=== PATIENT | female | born 1970 ===

== ENCOUNTER 2023-01-23 03:49 | Emergency (ER) | payer SELFPAY ==
[~2023-01-23] VITALS: Ht 162 cm; Wt 77.0 kg
[2023-01-23] MEDS ORDERED: KETOROLAC 30 MG/ML VIAL IVP STA (04:08)
[2023-01-23] MEDS ORDERED: KETOROLAC 30 MG/ML VIAL ONE (04:11)
[2023-01-23] MEDS ORDERED: ASPIRIN 81 MG CHEW (CHILDREN'S ASA) ONE (04:11)
[2023-01-23] MEDS ORDERED: ASPIRIN 81 MG CHEW (CHILDREN'S ASA) PO ONE (04:15)
[2023-01-23 04:16] LABS: BASOPHILS % (AUTO) 0 % (0-10); EOSINOPHILS # (AUTO) 0.1 10^3/uL (0.0-0.3); EOSINOPHILS % (AUTO) 2 % (0-10); HEMATOCRIT 39 % (35-52); HEMOGLOBIN 12.9 g/dL (11.5-16.0); LYMPHOCYTES # (AUTO) 2.2 10^3/uL (1.0-4.0); LYMPHOCYTES % (AUTO) 30 % (12-44); MEAN CORPUSCULAR HEMOGLOBIN 27 pg (25-34); MEAN CORPUSCULAR HGB CONC 33 g/dL (32-36); MEAN CORPUSCULAR VOLUME 82 fL (80-99); MONOCYTES # (AUTO) 0.8 10^3/uL (0.0-1.0); MONOCYTES % (AUTO) 10 % (0-12); NEUTROPHILS # (AUTO) 4.2 10^3/uL (1.8-7.8); NEUTROPHILS % (AUTO) 57 % (42-75); PLATELET COUNT 237 10^3/uL (130-400); WHITE BLOOD COUNT 7.4 10^3/uL (4.3-11.0)
--- NOTE | 2023-01-23 04:16 | ED Chest Pain ---
General Chief Complaint: Chest Pain Stated Complaint: SNYDER,CP,LEFT SIDE & ARM PAIN Nursing Triage Note: C/O LEFT SIDED HEADACHE, LEFT CHEST/ARM PAIN X2 WEEKS WORSE TONIGHT. Source: patient, family Exam Limitations: language barrier History of Present Illness Date Seen by Provider: Jan 23, 2023 Time Seen by Provider: 03:58 Initial Comments Here with daughter and reports left-sided chest pain that started as left head pain that went to the neck and not to the chest. She reports this has been going on for 2 weeks. Denies nausea, vomiting, fever, upper respiratory sym ptoms or diarrhea. She is not vaccinated for COVID. She does have history of high blood pressure in the distant past but is not currently in treatment for that. This worsened tonight which caused the presentation to the ED. Daughter reports that she has been getting a little worse over the past couple of days and complaining of the head pressure and fullness and chest complaints. Patient reports that she is also having a little bit of stomach upset. She has not taken anything for the pain. Timing/Duration: getting worse, other (2-week) Severity/Quality: moderate Location: other (Left-sided) Radiation: neck, other (Left side of head) Activities at Onset: none Prior CP/Workup: no prior cardiac workup ASA po LAW ENFORCEMENT OFFICER: No NTG SL LAW ENFORCEMENT OFFICER: No Associated Symptoms: abdominal pain; No back pain, No edema, No fatigue, No fever/chills; headache; No shortness of breath, No weakness Allergies and Home Medications Allergies Coded Allergies: No Known Drug Allergies (Unverified , 01/23/23) Patient Home Medication List Home Medication List Reviewed: Yes Review of Systems Review of Systems Constitutional: see HPI EENTM: No Symptoms Reported Respiratory: Denies Cough, Denies SOA at Rest Cardiovascular: Chest Pain; Denies Edema; Lightheadedness Gastrointestinal: Denies Nausea, Denies Vomiting Genitourinary: No Symptoms Reported Musculoskeletal: No back pain; neck pain Skin: no symptoms reported Psychiatric/Neurological: Headache; Denies Numbness Past Lnqzqxv-Kmkcqj-Uudant Hx Patient Social History Tobacco Use?: No Substance use?: No Alcohol Use?: No Pt feels they are or have been: No Immunizations Up To Date First/Initial COVID19 Vaccinat: NA Past Medical History Surgery/Hospitalization HX: HTN, TUBAL Surgeries: Yes Tubal Ligation Respiratory: No Cardiac: Yes Hypertension Neurological: No Family Medical History Reviewed Nursing Family Hx No Pertinent Family Hx Physical Exam Vital Signs Vital Signs - First Documented 01/23/23 03:57 Temp 36.4 Pulse 67 Resp 18 B/P (MAP) 166/80 (108) Pulse Ox 100 O2 Delivery Room Air Capillary Refill : Less Than 3 Seconds Height, Weight, BMI Height: '" Weight: lbs. oz. kg; 29.00 BMI Method: General Appearance: No Apparent Distress, WD/WN HEENT: PERRL/EOMI, Pharynx Normal Neck: Non Tender, Supple Respiratory: Lungs Clear, Normal Breath Sounds Cardiovascular: Regular Rate, Rhythm, No Murmur Gastrointestinal: Non Tender, Soft Extremity: Normal Range of Motion, Non Tender, No Calf Tenderness, No Pedal Edema Neurologic/Psychiatric: Alert, Oriented x3 Skin: Normal Color, Warm/Dry Progress/Results/Core Measures Results/Orders Lab Results Laboratory Tests Test 01/23/23 04:07 Range/Units White Blood Count 7.4 4.3-11.0 10^3/uL Red Blood Count 4.75 3.80-5.11 10^6/uL Hemoglobin 12.9 11.5-16.0 g/dL Hematocrit 39 35-52 % Mean Corpuscular Volume 82 80-99 fL Mean Corpuscular Hemoglobin 27 25-34 pg Mean Corpuscular Hemoglobin Concent 33 32-36 g/dL Red Cell Distribution Width 12.6 10.0-14.5 % Platelet Count 237 130-400 10^3/uL Mean Platelet Volume 10.0 9.0-12.2 fL Immature Granulocyte % (Auto) 0 % Neutrophils (%) (Auto) 57 42-75 % Lymphocytes (%) (Auto) 30 12-44 % Monocytes (%) (Auto) 10 0-12 % Eosinophils (%) (Auto) 2 0-10 % Basophils (%) (Auto) 0 0-10 % Neutrophils # (Auto) 4.2 1.8-7.8 10^3/uL Lymphocytes # (Auto) 2.2 1.0-4.0 10^3/uL Monocytes # (Auto) 0.8 0.0-1.0 10^3/uL Eosinophils # (Auto) 0.1 0.0-0.3 10^3/uL Basophils # (Auto) 0.0 0.0-0.1 10^3/uL Immature Granulocyte # (Auto) 0.0 0.0-0.1 10^3/uL Prothrombin Time 12.4 12.2-14.7 SEC INR Comment 0.9 0.8-1.4 Activated Partial Thromboplast Time 29 24-35 SEC Sodium Level 140 135-145 MMOL/L Potassium Level 3.8 3.6-5.0 MMOL/L Chloride Level 106 98-107 MMOL/L Carbon Dioxide Level 22 21-32 MMOL/L Anion Gap 12 5-14 MMOL/L Blood Urea Nitrogen 9 7-18 MG/DL Creatinine 0.69 0.60-1.30 MG/DL Estimat Glomerular Filtration Rate 106 BUN/Creatinine Ratio 13 Glucose Level 105 70-105 MG/DL Calcium Level 9.4 8.5-10.1 MG/DL Corrected Calcium 9.1 8.5-10.1 MG/DL Magnesium Level 2.1 1.6-2.4 MG/DL Total Bilirubin 0.5 0.1-1.0 MG/DL Aspartate Amino Transf (AST/SGOT) 26 5-34 U/L Alanine Aminotransferase (ALT/SGPT) 38 0-55 U/L Alkaline Phosphatase 85 40-136 U/L Myoglobin 50.5 10.0-92.0 NG/ML Troponin I < 0.028 <0.028 NG/ML C-Reactive Protein High Sensitivity 0.73 H 0.00-0.50 MG/DL Total Protein 8.2 6.4-8.2 GM/DL Albumin 4.4 3.2-4.5 GM/DL My Orders Orders - SAILAJA MCCARTY MD Cbc With Automated Diff (01/23/23 04:08) Magnesium (01/23/23 04:08) Chest 1 View, Ap/Pa Only (01/23/23 04:08) Ekg Tracing (01/23/23 04:08) Comprehensive Metabolic Panel (01/23/23 04:08) Myoglobin Serum (01/23/23 04:08) Protime With Inr (01/23/23 04:08) Partial Thromboplastin Time (01/23/23 04:08) O2 (01/23/23 04:08) Monitor-Rhythm Ecg Trace Only (01/23/23 04:08) Lipid Panel (01/24/23 06:00) Ed Iv/Invasive Line Start (01/23/23 04:08) Aspirin Chewable Tablet (Baby Aspirin Ch (01/23/23 04:15) Ct Head Wo (01/23/23 04:08) Ketorolac Injection (Toradol Injection) (01/23/23 04:08) Hs C Reactive Protein (01/23/23 04:08) Troponin I Amalia (01/23/23 04:08) Aspirin Chewable Tablet (Baby Aspirin Ch (01/23/23 04:11) Ketorolac Injection (Toradol Injection) (01/23/23 04:11) Medications Given in ED Current Medications Medications Dose Ordered Sig/Kimber Route Start Time Stop Time Status Last Admin Dose Admin Aspirin 324 mg ONCE ONCE PO 01/23/23 04:15 01/23/23 04:16 DC 01/23/23 04:11 324 MG Vital Signs/I&O 01/23/23 01/23/23 03:57 04:12 Temp 36.4 36.4 Pulse 67 Resp 18 B/P (MAP) 166/80 (108) Pulse Ox 100 O2 Delivery Room Air Blood Pressure Mean: 108 Progress Progress Note : Progress Note Seen and evaluated. IV, labs including CBC, CMP, CRP and troponin ordered. Chest x-ray ordered for chest pain. We will get CT of the head due to 2 weeks of fever. Aspirin 324 mg p.o. as well as Toradol 30 mg IV ordered for chest pain protocol and pain. Monitor patient. Differential diagnosis includes chest pain of cardiac etiology, musculoskeletal pain, tension headache, intracranial hemorrhage, electrolyte abnormality, dehydration. 0435: CBC is normal overall. Chest x-ray shows mild cardiomegaly without infiltrate on my interpretation. CT of the head does not show intracranial hemorrhage on my interpretation. Monitor patient. 0524: CMP overall normal. Troponin is negative. CRP is very low. CT of the head radiology results noted below. Patient is overall feeling better and feels comfortable going home. Daughter will assist with follow-up in the clinic. Patient states that she is not having any pain currently. Given that she has had the pain for 2 weeks, the negative troponin should rule out cardiac event. EKG also is nonconcerning. Discharged home with return precautions. Patient and daughter verbalized understanding instructions and agreement with plan. Initial ECG Impression Date: Jan 23, 2023 Initial ECG Impression Time: 04:01 Initial ECG Rate: 70 Initial ECG Rhythm: Normal Sinus Comment Sinus rhythm with normal axis. Left atrial abnormality. No evidence of ST elevation [place]. Interpreted by me. Diagnostic Imaging Diagonstic Imaging: Xray Plain Films/CT/US/NM/MRI: chest Comments No acute findings on my interpretation. Pending radiology results. Reviewed: Reviewed by Me Diagonstic Imaging: CT Plain Films/CT/US/NM/MRI: head Comments Normal head/brain CT. Per stat rad report. Reviewed: Reviewed [place] Hawk Study, Reviewed by Me Departure Impression Primary Impression: Chest pain Qualified Codes: R07.9 - Chest pain, unspecified Additional Impression: Headache Qualified Codes: G44.209 - Tension-type headache, unspecified, not intractable Disposition: HOME, SELF-CARE Condition: Improved Departure-Patient Inst. Decision time for Depature: 05:23 Referrals: [facility] (PCP/Family) Primary Care Physician Patient Instructions: Headache, Adult ED Add. Discharge Instructions: All discharge instructions reviewed with patient and/or family. Voiced understanding. Follow-up with the clinic as soon as possible. For the headache, you may take Tylenol/acetaminophen 1000 mg every 6-8 hours as needed for pain. You may take ibuprofen 600 mg every 8 hours as needed for pain. Drink plenty of fluids and get plenty of rest. Return for worse pain, vomiting, vision or balance problems, weakness, chest pain or other concerns as needed. Seguimiento con la clnica pena pronto melody sea posible. Para el dolor de juan pablo, puede slade Tylenol/acetaminophen 1000 mg cada 6 a 8 horas segn sea necesario para el dolor. Puede slade ibuprofeno 600 mg cada 8 horas segn sea necesario para el dolor. Rebeca muchos lquidos y descanse lo suficiente. Regrese si empeora el dolor, vmitos, problemas de visin o equilibrio, debilidad, dolor en el pecho u otras inquietudes segn sea necesario. SAILAJA MCCARTY MD Jan 23, 2023 04:16
[2023-01-23 04:26] LABS: ALBUMIN 4.4 GM/DL (3.2-4.5); CHLORIDE 106 MMOL/L (98-107); POTASSIUM 3.8 MMOL/L (3.6-5.0); SODIUM 140 MMOL/L (135-145)
[2023-01-23 04:27] LABS: CALCIUM 9.4 MG/DL (8.5-10.1)
[2023-01-23 04:28] LABS: GLUCOSE 105 MG/DL (70-105)
[2023-01-23 04:29] LABS: TOTAL PROTEIN 8.2 GM/DL (6.4-8.2)
[2023-01-23 04:30] LABS: BILIRUBIN,TOTAL 0.5 MG/DL (0.1-1.0); CARBON DIOXIDE 22 MMOL/L (21-32)
[2023-01-23 04:31] LABS: INR 0.9 (0.8-1.4); PROTHROMBIN TIME PATIENT 12.4 SEC (12.2-14.7)
[2023-01-23 04:32] LABS: ALKALINE PHOSPHATASE 85 U/L (40-136); CREATININE SERUM 0.69 MG/DL (0.60-1.30); GFR ESTIMATED 106
[2023-01-23 04:33] LABS: BUN/CREATININE RATIO 13
[2023-01-23 04:35] LABS: ALANINE AMINOTRANSFERASE 38 U/L (0-55); MAGNESIUM 2.1 MG/DL (1.6-2.4)
[2023-01-23 05:30] VITALS: BP 125/64
--- NOTE | 2023-01-23 06:46 | Diagnostic Imaging Report ---
INDICATION: Chest pain Portable chest 4:15 AM Heart size and pulmonary vascularity are normal. Lungs are clear. There are no effusions or pneumothoraces. IMPRESSION: Negative chest Dictated by: Dictated on workstation # [id number]
--- NOTE | 2023-01-23 07:06 | Diagnostic Imaging Report ---
PROCEDURE: CT head without contrast. TECHNIQUE: Multiple contiguous axial images were obtained through the brain without the use of intravenous contrast. Auto Exposure Controls were utilized during the CT exam to meet ALARA standards for radiation dose reduction. INDICATION: Headache CT HEAD: CT images of the head were obtained. FINDINGS: Ventricles and sulci are within normal limits for size. There is no intracranial hemorrhage identified. There is no abnormal mass effect or shift of midline structures. IMPRESSION: Unremarkable CT of the head. Dictated by: Dictated on workstation # [id number]
== END 2023-01-23 05:33 | disposition home or self-care (01) ==
LOC: ER 03:54
DX: R07.89 Other chest pain (principal); R51.9 Headache, unspecified; Z28.310 Unvaccinated for COVID-19
CPT/HCPCS: 36415; 70450; 71045; 80053; 83735; 83874; 84484; 85025; 85610; 85730; 86141; 93005; 93041

== ENCOUNTER 2023-02-06 13:23 | Emergency (ER) | payer SELFPAY ==
[~2023-02-06] VITALS: Ht 152 cm; Wt 79.0 kg
[2023-02-06 13:54] LABS: BASOPHILS % (AUTO) 0 % (0-10); EOSINOPHILS # (AUTO) 0.1 10^3/uL (0.0-0.3); EOSINOPHILS % (AUTO) 1 % (0-10); HEMATOCRIT 39 % (35-52); HEMOGLOBIN 12.6 g/dL (11.5-16.0); LYMPHOCYTES # (AUTO) 1.5 10^3/uL (1.0-4.0); LYMPHOCYTES % (AUTO) 26 % (12-44); MEAN CORPUSCULAR HEMOGLOBIN 27 pg (25-34); MEAN CORPUSCULAR HGB CONC 33 g/dL (32-36); MEAN CORPUSCULAR VOLUME 83 fL (80-99); MEAN PLATELET VOLUME 10.1 fL (9.0-12.2); MONOCYTES # (AUTO) 0.5 10^3/uL (0.0-1.0); MONOCYTES % (AUTO) 9 % (0-12); NEUTROPHILS # (AUTO) 3.8 10^3/uL (1.8-7.8); NEUTROPHILS % (AUTO) 64 % (42-75); PLATELET COUNT 222 10^3/uL (130-400)
[2023-02-06 14:05] LABS: ALBUMIN 4.2 GM/DL (3.2-4.5); POTASSIUM 3.9 MMOL/L (3.6-5.0)
[2023-02-06 14:06] LABS: CALCIUM 8.9 MG/DL (8.5-10.1)
[2023-02-06 14:07] LABS: TOTAL PROTEIN 7.6 GM/DL (6.4-8.2)
[2023-02-06 14:09] LABS: BILIRUBIN,TOTAL 0.5 MG/DL (0.1-1.0)
[2023-02-06 14:11] LABS: CREATININE SERUM 0.7 MG/DL (0.60-1.30)
--- NOTE | 2023-02-06 14:11 | ED Abdominal Pain ---
General Chief Complaint: Abdominal/GI Problems Stated Complaint: LT SIDE ABD PAIN Nursing Triage Note: C/O PAIN ON LEFT SIDE AND STOMACH AREA SINCE YESTERDAY. VERBALIZES SHE HAS BEEN HAVING PAIN THERE GOING ON TWO MONTHS BUT YESTERDAY IT BECAME MUCH WORSE. 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) History of Present Illness Date Seen by Provider: Feb 06, 2023 Time Seen by Provider: 13:44 Initial Comments PT ARRIVES VIA POV FROM HOME WITH DAUGHTER AND GRANDCHILD C/O LEFT UPPER QUADRANT PAIN FOR OVER 2 MONTHS, HAS BEEN WORSE SINCE YESTERDAY PAIN RADIATES TO LEFT FLANK AND UP TO LEFT SHOULDER NOTHING WORSENS OR IMPROVES PAIN + NAUSEA, NO VOMITING HAD BM Allergies and Home Medications Allergies Coded Allergies: No Known Drug Allergies (Unverified , 02/06/23) Past Ccrxutx-Mrzehf-Krzcab Hx Patient Social History Tobacco Use?: No Use of E-Cig and/or Vaping dev: No Substance use?: No Alcohol Use?: No Immunizations Up To Date Influenza Vaccine Up-to-Date: No; Not Current First/Initial COVID19 Vaccinat: NA Past Medical History Surgery/Hospitalization HX: DENIES TUBAL Surgeries: Yes Tubal Ligation Respiratory: No Cardiac: Yes Hypertension Neurological: No Family Medical History No Pertinent Family Hx Physical Exam Vital Signs Vital Signs - First Documented 02/06/23 13:28 Temp 36.8 Pulse 81 Resp 18 B/P (MAP) 156/87 (110) Pulse Ox 99 O2 Delivery Room Air Capillary Refill : Less Than 3 Seconds Height/Weight/BMI Height: '" Weight: lbs. oz. kg; 34.00 BMI Method: Progress/Results/Core Measures Results/Orders Lab Results Laboratory Tests Test 02/06/23 13:48 02/06/23 14:25 Range/Units White Blood Count 6.0 4.3-11.0 10^3/uL Red Blood Count 4.63 3.80-5.11 10^6/uL Hemoglobin 12.6 11.5-16.0 g/dL Hematocrit 39 35-52 % Mean Corpuscular Volume 83 80-99 fL Mean Corpuscular Hemoglobin 27 25-34 pg Mean Corpuscular Hemoglobin Concent 33 32-36 g/dL Red Cell Distribution Width 13.0 10.0-14.5 % Platelet Count 222 130-400 10^3/uL Mean Platelet Volume 10.1 9.0-12.2 fL Immature Granulocyte % (Auto) 0 % Neutrophils (%) (Auto) 64 42-75 % Lymphocytes (%) (Auto) 26 12-44 % Monocytes (%) (Auto) 9 0-12 % Eosinophils (%) (Auto) 1 0-10 % Basophils (%) (Auto) 0 0-10 % Neutrophils # (Auto) 3.8 1.8-7.8 10^3/uL Lymphocytes # (Auto) 1.5 1.0-4.0 10^3/uL Monocytes # (Auto) 0.5 0.0-1.0 10^3/uL Eosinophils # (Auto) 0.1 0.0-0.3 10^3/uL Basophils # (Auto) 0.0 0.0-0.1 10^3/uL Immature Granulocyte # (Auto) 0.0 0.0-0.1 10^3/uL Sodium Level 136 135-145 MMOL/L Potassium Level 3.9 3.6-5.0 MMOL/L Chloride Level 104 98-107 MMOL/L Carbon Dioxide Level 24 21-32 MMOL/L Anion Gap 8 5-14 MMOL/L Blood Urea Nitrogen 7 7-18 MG/DL Creatinine 0.70 0.60-1.30 MG/DL Estimat Glomerular Filtration Rate 105 BUN/Creatinine Ratio 10 Glucose Level 127 H 70-105 MG/DL Calcium Level 8.9 8.5-10.1 MG/DL Corrected Calcium 8.7 8.5-10.1 MG/DL Total Bilirubin 0.5 0.1-1.0 MG/DL Aspartate Amino Transf (AST/SGOT) 24 5-34 U/L Alanine Aminotransferase (ALT/SGPT) 45 0-55 U/L Alkaline Phosphatase 89 40-136 U/L Troponin I < 0.028 <0.028 NG/ML B-Type Natriuretic Peptide 17.5 <100.0 PG/ML Total Protein 7.6 6.4-8.2 GM/DL Albumin 4.2 3.2-4.5 GM/DL Amylase Level 37 25-125 U/L Lipase 14 8-78 U/L Urine Color YELLOW Urine Clarity CLOUDY Urine pH 6.0 5-9 Urine Specific Benkelman 1.010 L 1.016-1.022 Urine Protein NEGATIVE NEGATIVE Urine Glucose (UA) NEGATIVE NEGATIVE Urine Ketones NEGATIVE NEGATIVE Urine Nitrite NEGATIVE NEGATIVE Urine Bilirubin NEGATIVE NEGATIVE Urine Urobilinogen 0.2 < = 1.0 MG/DL Urine Leukocyte Esterase 2+ H NEGATIVE Urine RBC (Auto) TRACE-I H NEGATIVE Urine RBC 0-2 /HPF Urine WBC 5-10 H /HPF Urine Squamous Epithelial Cells 5-10 /HPF Urine Crystals NONE /LPF Urine Bacteria MODERATE H /HPF Urine Casts NONE /LPF Urine Mucus NEGATIVE /LPF Urine Culture Indicated YES My Orders Orders - AURORA BUENO DO Ed Iv/Invasive Line Start (02/06/23 13:44) Urine Bedside (02/06/23 13:44) Monitor-Rhythm Ecg Trace Only (02/06/23 13:44) Amylase (02/06/23 13:44) Cbc With Automated Diff (02/06/23 13:44) Comprehensive Metabolic Panel (02/06/23 13:44) Lipase (02/06/23 13:44) Ua Culture If Indicated (02/06/23 13:44) Bnp Carver (02/06/23 13:50) Troponin I Amalia (02/06/23 13:50) Chest 1 View, Ap/Pa Only (02/06/23 13:50) Ekg Tracing (02/06/23 13:50) Ketorolac Injection (Toradol Injection) (02/06/23 14:45) Ct Abd/Pelvis Wo(Kidney Stone) (02/06/23 14:34) Abdomen/Kub 1view (02/06/23 14:34) Urine Culture (02/06/23 14:25) Ceftriaxone 1 Gm Pre-Mix (Rocephin 1 Gm (02/06/23 15:15) Medications Given in ED Current Medications Medications Dose Ordered Sig/Kimber Route Start Time Stop Time Status Last Admin Dose Admin Ketorolac Tromethamine 30 mg ONCE ONCE IVP 02/06/23 14:45 02/06/23 14:46 DC 02/06/23 14:51 30 MG Vital Signs/I&O 02/06/23 13:28 Temp 36.8 Pulse 81 Resp 18 B/P (MAP) 156/87 (110) Pulse Ox 99 O2 Delivery Room Air Blood Pressure Mean: 110 Departure Impression Primary Impression: Urinary tract infection Disposition: 01 HOME, SELF-CARE Condition: Stable Departure-Patient Inst. Decision time for Depature: 15:39 Referrals: [facility] (PCP/Family) Primary Care Physician Patient Instructions: Urinary Tract Infection, Adult ED Add. Discharge Instructions: HOME, REST LOTS OF CLEAR LIQUIDS TYLENOL NEEDED FOR PAIN FOLLOW UP WITH [facility] IN 3-4 DAYS FOR FURTHER CARE All discharge instructions reviewed with patient and/or family. Voiced understanding. Scripts Ondansetron (Ondansetron Odt) 4 Mg Tab.rapdis 4 MG PO Q4H for Nausea/Vomiting, #10 TAB Prov: AURORA BUENO DO 02/06/23 Ketorolac Tromethamine (Ketorolac Tromethamine) 10 Mg Tablet 10 MG PO Q6H for Pain, #15 TAB Prov: AURORA BUENO DO 02/06/23 Cefdinir (Cefdinir) 300 Mg Capsule 300 MG PO BID, #20 CAP Prov: AURORA BUENO DO 02/06/23 AURORA BUENO DO Feb 06, 2023 14:11
--- NOTE | 2023-02-06 14:20 | Diagnostic Imaging Report ---
INDICATION: Chest pain EXAM: Single AP view of the chest is obtained with comparison made to study of 01/23/2023 FINDINGS: Heart size and pulmonary vascularity are within normal limits, and the lungs are clear, bilaterally. IMPRESSION: Unremarkable chest. Dictated by: Dictated on workstation # [id number]
[2023-02-06 14:32] LABS: BILIRUBIN,URINE NEGATIVE (NEGATIVE); CLARITY,URINE CLOUDY; COLOR,URINE YELLOW; GLUCOSE, URINE (UA) NEGATIVE (NEGATIVE); KETONES,URINE NEGATIVE (NEGATIVE); LEUKOCYTE ESTERASE ,URINE 2+ (NEGATIVE); NITRITE,URINE NEGATIVE (NEGATIVE); PROTEIN,URINE NEGATIVE (NEGATIVE)
[2023-02-06] MEDS ORDERED: KETOROLAC 30 MG/ML VIAL IVP ONE (14:45)
[2023-02-06 14:55] LABS: BACTERIA,URINE MODERATE /HPF; RBC,URINE 0-2 /HPF
--- NOTE | 2023-02-06 15:00 | Diagnostic Imaging Report ---
INDICATION: Abdominal pain. Abdominal film obtained at 2:55 p.m. FINDINGS: Abdominal bowel gas pattern is unremarkable. There is no overt obstruction or ileus. There are no suspicious calcifications. There is a phlebolith in the left side of the pelvis. There is a zipper overlying the left lower quadrant, presumably outside the patient; correlate clinically. IMPRESSION: Unremarkable bowel gas pattern. Dictated by: Dictated on workstation # [id number]
[2023-02-06] MEDS ORDERED: cefTRIAXone 1 GM PRE-MIX 50 ML IV ONE (15:15)
--- NOTE | 2023-02-06 15:16 | Diagnostic Imaging Report ---
PROCEDURE: CT urinary tract, rule out kidney stone. TECHNIQUE: Multiple contiguous axial images were obtained through the abdomen and pelvis without the use of intravenous contrast. Auto Exposure Controls were utilized during the CT exam to meet ALARA standards for radiation dose reduction. INDICATION: Left-sided flank pain. COMPARISON: I have no priors. FINDINGS: There are no radiopaque urinary tract calculi. There is no hydroureteronephrosis. Urinary bladder is unremarkable. The uterus and adnexa appeared nonacute. There is no appendicitis or diverticulitis. There is no bowel obstruction. Liver, spleen, adrenals, and pancreas are unremarkable at this nonenhanced exam. No abscess, hematoma, or acute fluid collection. No focal inflammatory changes. IMPRESSION: Unobstructed urinary tracts. No opaque stone. No inflammatory process, obstructive features, or acute-appearing abnormalities identified at nonenhanced CT abdomen and pelvis. Dictated by: Dictated on workstation # [id number]
[2023-02-06] MEDS ORDERED: ONDA4TAB11 PO (15:50)
[2023-02-06] MEDS ORDERED: CEFD300C3 PO (15:50)
[2023-02-06] MEDS ORDERED: KETO10TA PO (15:50)
[2023-02-06 16:10] VITALS: BP 124/68
== END 2023-02-06 16:11 | disposition home or self-care (01) ==
LOC: EDUNIT# 13:23 → ER 13:25
DX: N39.0 Urinary tract infection, site not specified (principal); Z28.310 Unvaccinated for COVID-19
CPT/HCPCS: 36415; 71045; 74018; 74176; 80053; 81000; 82150; 83690; 83880; 84484; 84703; 85025; 87088; 93005; 93041

== ENCOUNTER 2023-07-29 18:05 | Emergency (ER) | payer SELFPAY ==
[~2023-07-29] VITALS: Ht 165.1 cm; Wt 73.2 kg
[~2023-07-29 18:05] MED LIST: CEFD300C3 PO; KETO10TA PO; ONDA4TAB11 PO
[2023-07-29] MEDS ORDERED: NITROGLYCERIN 0.4 MG SL TABLETS BTL 25'S SL PRN (18:15)
[2023-07-29] MEDS ORDERED: ASPIRIN 81 MG CHEWABLE TABLET PO ONE (18:15)
[2023-07-29 18:26] LABS: BASOPHILS % (AUTO) 0 % (0-10); EOSINOPHILS # (AUTO) 0.1 10^3/uL (0.0-0.3); EOSINOPHILS % (AUTO) 1 % (0-10); HEMATOCRIT 38 % (35-52); HEMOGLOBIN 12.2 g/dL (11.5-16.0); LYMPHOCYTES # (AUTO) 1.8 10^3/uL (1.0-4.0); LYMPHOCYTES % (AUTO) 23 % (12-44); MEAN CORPUSCULAR HEMOGLOBIN 27 pg (25-34); MEAN CORPUSCULAR HGB CONC 32 g/dL (32-36); MEAN CORPUSCULAR VOLUME 84 fL (80-99); MEAN PLATELET VOLUME 10.2 fL (9.0-12.2); MONOCYTES # (AUTO) 0.8 10^3/uL (0.0-1.0); MONOCYTES % (AUTO) 11 % (0-12); NEUTROPHILS # (AUTO) 5.1 10^3/uL (1.8-7.8); NEUTROPHILS % (AUTO) 64 % (42-75); PLATELET COUNT 231 10^3/uL (130-400); WHITE BLOOD COUNT 7.9 10^3/uL (4.3-11.0)
--- NOTE | 2023-07-29 18:27 | ED Chest Pain ---
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, BOTH ARE SOMEWHAT LIMITED HISTORIANS) Exam Limitations: language barrier History of Present Illness Date Seen by Provider: Jul 29, 2023 Time Seen by Provider: 18:15 Initial Comments PT ARRIVES VIA POV WITH DAUGHTER AND GRANDCHILD--SENT HERE FROM [facility] PT LIVES WITH DAUGHTER C/O CHEST PAIN SINCE 1829 YESTERDAY PAIN IS IN CENTER OF CHEST, GOES DOWN LEFT ARM AND INTO NECK RATES PAIN 8-9/10 AT THIS TIME PAIN BEGAN WHEN SHE WAS ANGRY YESTERDAY PAIN IS WORSE WITH EXERTION, WITH DEEP BREATHING AND WITH MOVING HER ARM OR NECK LEFT ARM FEELS A LITTLE TINGLY + SHORTNESS OF BREATH PT HAS HAD A "LITTLE COUGH" WITH CLEAR SPUTUM NO FEVER NO BODY ACHES NO SORE THROAT NO HEADACHE NO SWEATS NO NAUSEA/VOMITING/DIARRHEA OR ABDOMINAL PAIN NO SWELLING IN LEGS/ FEET OR PAIN IN CALVES NO RECENT TRAVEL IS UNCLEAR IF SHE HAS HAD THIS PROBLEM IN THE PAST--ON REVIEW OF PRIOR RECORDS, PT WAS SEEN HERE IN JANUARY OF THIS YEAR FOR SAME COMPLAINT THAT HAD BEEN ONGOING FOR 2 WEEKS AT THAT TIME--ER WORK UP WAS NEGATIVE FOR ACUTE CARDIAC ISSUE AT THAT TIME. DAUGHTER STATES 14 YEARS AGO, SHE HAD STROKE SYMPTOMS WITH WEAKNESS TO HER FACE. DAUGHTER STATES SHE IS "PRE-DIABETIC" BUT STATES "HER BLOOD WORK IS OK" AND DOES NOT TAKE ANY MEDICATIONS FOR PRE-DIABETES SHE HAS BEEN DX WITH HTN AND HYPERLIPIDEMIA WELL, BUT DOES NOT TAKE ANY MEDICATION FOR THOSE ISSUES SHE HAS NOT FOLLOWED UP WITH [facility] FOR ONGOING MEDICAL CARE UNTIL TODAY. SHE TAKES ASPIRIN OTHERWISE NO DAILY MEDICATIONS SHE DID TAKE IBUPROFEN TODAY AROUND 1400 AND IT HELPED A LITTLE BIT PT IS NOT COVID OR FLU VACCINATED LMP 07/24/23. NORMAL. S/P BTL PCP: [facility] Allergies and Home Medications Allergies Coded Allergies: No Known Drug Allergies (Unverified , 02/06/23) Patient Home Medication List Cefdinir (Cefdinir) 300 Mg Capsule, 300 MG PO BID Prescribed by: AURORA BUENO on 02/06/23 1550 Ketorolac Tromethamine (Ketorolac Tromethamine) 10 Mg Tablet, 10 MG PO Q6H Prescribed by: AURORA BUENO on 02/06/23 1550 Ondansetron (Ondansetron Odt) 4 Mg Tab.rapdis, 4 MG PO Q4H Prescribed by: AURORA BUENO on 02/06/23 1550 Review of Systems Review of Systems Constitutional: no symptoms reported EENTM: No Symptoms Reported Respiratory: See HPI Cardiovascular: See HPI Gastrointestinal: No Symptoms Reported Genitourinary: No Symptoms Reported Musculoskeletal: see HPI Skin: no symptoms reported Psychiatric/Neurological: See HPI Endocrine: No Symptoms Reported Hematologic/Lymphatic: No Symptoms Reported Past Fblzryo-[id number] Hx Patient Social History Tobacco Use?: No Smoking Status: Never a Smoker Use of E-Cig and/or Vaping dev: No Substance use?: No Alcohol Use?: No Immunizations Up To Date First/Initial COVID19 Vaccinat: NA Past Medical History Surgery/Hospitalization HX: DENIES TUBAL Surgeries: Yes Tubal Ligation Respiratory: No Cardiac: Yes (NO MEDICATIONS) High Cholesterol, Hypertension Neurological: No Last Menstrual Period: Jul 24, 2023 Reproductive Disorders: No Female Reproductive Disorders: Denies COVERAGE SPECIALIST History: Tubal Ligation Genitourinary: No Gastrointestinal: No Musculoskeletal: No Endocrine: Yes ("PRE-DIABETES" --NO MEDICATIONS) HEENT: No Cancer: No Psychosocial: No Integumentary: No Blood Disorders: No Family Medical History No Pertinent Family Hx Physical Exam Vital Signs Vital Signs - First Documented 07/29/23 07/29/23 18:15 18:42 Temp 36.4 Pulse 70 Resp 20 B/P (MAP) 153/93 (113) Pulse Ox 100 O2 Delivery Room Air Capillary Refill : Height, Weight, BMI Height: '" Weight: lbs. oz. kg; 34.00 BMI Method: General Appearance: No Apparent Distress, WD/WN HEENT: PERRL/EOMI Neck: Normal Inspection Respiratory: Normal Breath Sounds, No Accessory Muscle Use, No Respiratory Distress Cardiovascular: Regular Rate, Rhythm, No Edema, No JVD, No Murmur, Normal Peripheral Pulses Gastrointestinal: Non Tender, Soft Extremity: Normal Capillary Refill, Normal Inspection, Normal Range of Motion, Non Tender, No Calf Tenderness, No Pedal Edema Neurologic/Psychiatric: Alert, Oriented x3, No Motor/Sensory Deficits, Normal Mood/Affect, boiler out II-XII Norm as Tested Skin: Normal Color (), Warm/Dry Progress/Results/Core Measures Results/Orders Lab Results Laboratory Tests Test 07/29/23 18:18 07/29/23 18:39 Range/Units White Blood Count 7.9 4.3-11.0 10^3/uL Red Blood Count 4.50 3.80-5.11 10^6/uL Hemoglobin 12.2 11.5-16.0 g/dL Hematocrit 38 35-52 % Mean Corpuscular Volume 84 80-99 fL Mean Corpuscular Hemoglobin 27 25-34 pg Mean Corpuscular Hemoglobin Concent 32 32-36 g/dL Red Cell Distribution Width 13.6 10.0-14.5 % Platelet Count 231 130-400 10^3/uL Mean Platelet Volume 10.2 9.0-12.2 fL Immature Granulocyte % (Auto) 0 % Neutrophils (%) (Auto) 64 42-75 % Lymphocytes (%) (Auto) 23 12-44 % Monocytes (%) (Auto) 11 0-12 % Eosinophils (%) (Auto) 1 0-10 % Basophils (%) (Auto) 0 0-10 % Neutrophils # (Auto) 5.1 1.8-7.8 10^3/uL Lymphocytes # (Auto) 1.8 1.0-4.0 10^3/uL Monocytes # (Auto) 0.8 0.0-1.0 10^3/uL Eosinophils # (Auto) 0.1 0.0-0.3 10^3/uL Basophils # (Auto) 0.0 0.0-0.1 10^3/uL Immature Granulocyte # (Auto) 0.0 0.0-0.1 10^3/uL Prothrombin Time 12.9 12.2-14.7 SEC INR Comment 1.0 0.8-1.4 Activated Partial Thromboplast Time 29 24-35 SEC D-Dimer < 0.27 0.00-0.49 UG/ML Sodium Level 137 135-145 MMOL/L Potassium Level 4.2 3.6-5.0 MMOL/L Chloride Level 106 98-107 MMOL/L Carbon Dioxide Level 22 21-32 MMOL/L Anion Gap 9 5-14 MMOL/L Blood Urea Nitrogen 13 7-18 MG/DL Creatinine 0.72 0.60-1.30 MG/DL Estimat Glomerular Filtration Rate 101 BUN/Creatinine Ratio 18 Glucose Level 92 70-105 MG/DL Calcium Level 9.0 8.5-10.1 MG/DL Corrected Calcium 8.9 8.5-10.1 MG/DL Magnesium Level 2.2 1.6-2.4 MG/DL Total Bilirubin 0.4 0.1-1.0 MG/DL Aspartate Amino Transf (AST/SGOT) 21 5-34 U/L Alanine Aminotransferase (ALT/SGPT) 25 0-55 U/L Alkaline Phosphatase 106 40-136 U/L Total Creatine Kinase 175 H 29-168 U/L Creatine Kinase MB 2.4 <6.6 NG/ML Myoglobin 30.7 10.0-92.0 NG/ML Troponin I < 0.028 <0.028 NG/ML B-Type Natriuretic Peptide 21.7 <100.0 PG/ML Total Protein 7.5 6.4-8.2 GM/DL Albumin 4.1 3.2-4.5 GM/DL Amylase Level 40 25-125 U/L Lipase 16 8-78 U/L Serum Test, Qualitative NEGATIVE NEGATIVE Influenza Type A (RT-PCR) Not Detected Not Detecte Influenza Type B (RT-PCR) Not Detected Not Detecte SARS-CoV-2 RNA (RT-PCR) Not Detected Not Detecte My Orders Orders - AURORA BUENO DO Cbc With Automated Diff (07/29/23 18:15) Magnesium (07/29/23 18:15) Chest 1 View, Ap/Pa Only (07/29/23 18:15) Ekg Tracing (07/29/23 18:15) Comprehensive Metabolic Panel (07/29/23 18:15) Myoglobin Serum (07/29/23 18:15) Protime With Inr (07/29/23 18:15) Partial Thromboplastin Time (07/29/23 18:15) O2 (07/29/23 18:15) Monitor-Rhythm Ecg Trace Only (07/29/23 18:15) Ed Iv/Invasive Line Start (07/29/23 18:15) Creatine Kinase (07/29/23 18:15) Creatine Kinase Mb (07/29/23 18:15) Lipase (07/29/23 18:15) Amylase (07/29/23 18:15) Bnp Leslie (07/29/23 18:15) Fibrin Degradation Products (07/29/23 18:15) Troponin I Leslie (07/29/23 18:15) Nitroglycerin 0.4 Mg Btl 25's (Nitroglyc (07/29/23 18:15) Aspirin Chewable Tablet (Aspirin Chewabl (07/29/23 18:15) Covid 19 Inhouse Test (07/29/23 18:27) Hcg,Qualitative Serum (07/29/23 18:27) Influenza A And B By Pcr (07/29/23 18:27) Ct Angio Chest W (R/O Pe) (07/29/23 19:17) Iohexol Injection (Omnipaque 350 Mg/Ml 1 (07/29/23 19:30) Received Contrast (Hold Metformin- Contr (07/29/23 19:30) Ns (Ivpb) 100 Ml (Sodium Chloride 0.9% 1 (07/29/23 19:30) Ketorolac Injection (Ketorolac Injection (07/29/23 20:00) Medications Given in ED Current Medications Medications Dose Ordered Sig/Kimber Route Start Time Stop Time Status Last Admin Dose Admin Aspirin 324 mg ONCE ONCE PO 07/29/23 18:15 07/29/23 18:16 DC 07/29/23 18:27 324 MG Iohexol 75 ml ONCE ONCE IV 07/29/23 19:30 07/29/23 19:31 UNV 07/29/23 19:30 66 ML Nitroglycerin 0.4 mg UD PRN SL 07/29/23 18:15 07/29/23 18:27 0.4 MG Sodium Chloride 100 ml ONCE ONCE IV 07/29/23 19:30 07/29/23 19:31 UNV 07/29/23 19:30 100 ML Vital Signs/I&O 07/29/23 07/29/23 18:15 18:42 Temp 36.4 Pulse 70 Resp 20 B/P (MAP) 153/93 (113) Pulse Ox 100 O2 Delivery Room Air Room Air Progress Progress Note : Progress Note VITALS ON ARRIVAL: TEMP GIVEN: -ASPIRIN 324 MG -NTG SL LABS: -CBC NORMAL -CMP -AMYLASE/LIPASE -TROPONIN -BNP -COAGULATION STUDIES -D-DIMER -HCG EKG WITHOUT EVIDENCE OF STEMI REVIEWED PRIOR RECORDS--THIS IS PT'S 3RD ER VISIT, SINCE HER FIRST VISIT HERE IN JANUARY OF THIS YEAR. Initial ECG Impression Date: Jul 29, 2023 Initial ECG Impression Time: 18:23 Initial ECG Rate: 72 Initial ECG Rhythm: Normal Sinus Initial ECG Intervals: Normal Initial ECG Impression: Nonspecific Changes (SMALL Q WAVES LEAD 1 AND AVL) Initial ECG Comparisson: Unchanged Comment INTERPRETED BY ME Diagnostic Imaging Comments CXR--PER RADIOLOGIST REPORT AT 1857 COMPARISON: 02/06/2023. FINDINGS: The lungs appear clear without focal airspace opacities or consolidation. There are no findings of an effusion. There is no evidence of a pneumothorax. Heart size and mediastinal contours appear appropriate. Pulmonary vascularity appears within normal limits. There is no acute or suspicious osseous abnormality demonstrated. IMPRESSION: No radiographic evidence of an acute cardiopulmonary process. CT CHEST ANGIOGRAM--PER RADIOLOGIST REPORT AT 1953 FINDINGS: There is no CT radiographic finding of a filling defect within the pulmonary arteries or evidence of right ventricular strain. Thoracic aorta demonstrates no dissection or aneurysm. Heart size is normal. There is no filling defect in the left atrium. The lungs demonstrate no finding of pneumonia or edema. There is no pleural effusion. There is no pneumothorax. There is no suspicious nodule or mass. There is no finding of thoracic adenopathy. The visualized portion of the upper abdomen demonstrates no acute process. There is no acute or suspicious osseous abnormality. IMPRESSION: 1. No CT angiographic evidence of pulmonary embolism or right ventricular strain. 2. No acute aortic syndrome. 3. The lungs are clear. Reviewed: Reviewed by Me Departure Impression Primary Impression: Chest pain Additional Impression: Chest wall pain Disposition: 01 HOME, SELF-CARE Condition: Improved Departure-Patient Inst. Decision time for Depature: 19:57 Referrals: [facility] (PCP/Family) Primary Care Physician Patient Instructions: Chest Pain, Adult ED Add. Discharge Instructions: HOME, REST LOTS OF FLUIDS FOLLOW UP WITH [facility] THIS WEEK FOR FURTHER CARE--CALL IN THE MORNING TO [facility] AN APPOINTMENT Scripts Pantoprazole Sodium (Protonix) 40 Mg Tablet.dr 40 MG PO DAILY, #15 TAB Prov: AURORA BEUNO DO 07/29/23 Ketorolac Tromethamine (Ketorolac Tromethamine) 10 Mg Tablet 10 MG PO Q6H for Pain, #15 TAB Prov: MARQUEZ BUENOA K DO 07/29/23 MARQUEZ BUENOA Nettie DO Jul 29, 2023 18:27
[2023-07-29 18:42] LABS: ALBUMIN 4.1 GM/DL (3.2-4.5); PROTHROMBIN TIME PATIENT 12.9 SEC (12.2-14.7)
[2023-07-29 18:43] LABS: CHLORIDE 106 MMOL/L (98-107); PARTIAL THROMBOPLASTIN TIME 29 SEC (24-35); POTASSIUM 4.2 MMOL/L (3.6-5.0); SODIUM 137 MMOL/L (135-145)
[2023-07-29 18:44] LABS: AMYLASE 40 U/L (25-125)
[2023-07-29 18:45] LABS: GLUCOSE 92 MG/DL (70-105); TOTAL PROTEIN 7.5 GM/DL (6.4-8.2)
[2023-07-29 18:46] LABS: CARBON DIOXIDE 22 MMOL/L (21-32)
[2023-07-29 18:48] LABS: ALKALINE PHOSPHATASE 106 U/L (40-136)
[2023-07-29 18:49] LABS: CREATININE SERUM 0.72 MG/DL (0.60-1.30); GFR ESTIMATED 101
[2023-07-29 18:50] LABS: BUN/CREATININE RATIO 18; FIBRIN DEGRADATION PRODUCTS < 0.27 UG/ML (0.00-0.49)
[2023-07-29 18:52] LABS: ALANINE AMINOTRANSFERASE 25 U/L (0-55); MAGNESIUM 2.2 MG/DL (1.6-2.4)
[2023-07-29 18:53] LABS: CREATINE KINASE 175 U/L (29-168); LIPASE 16 U/L (8-78)
--- NOTE | 2023-07-29 18:53 | Diagnostic Imaging Report ---
INDICATION: Chest pain. COMPARISON: 02/06/2023. FINDINGS: The lungs appear clear without focal airspace opacities or consolidation. There are no findings of an effusion. There is no evidence of a pneumothorax. Heart size and mediastinal contours appear appropriate. Pulmonary vascularity appears within normal limits. There is no acute or suspicious osseous abnormality demonstrated. IMPRESSION: No radiographic evidence of an acute cardiopulmonary process. Dictated by: Dictated on workstation # [id number]
[2023-07-29 18:59] LABS: CREATINE KINASE MB 2.4 NG/ML (<6.6)
[2023-07-29 19:13] LABS: BILIRUBIN,TOTAL 0.4 MG/DL (0.1-1.0)
[2023-07-29] MEDS ORDERED: HOLD METFORMIN - RECEIVED CONTRAST 20 ML VIAL IV SCH (19:30)
[2023-07-29] MEDS ORDERED: NS 100 ML (IVPB) BAG IV ONE (19:30)
[2023-07-29] MEDS ORDERED: IOHEXOL 350 MG/ML 100 ML (OMNIPAQUE 350) VIAL IV ONE (19:30)
--- NOTE | 2023-07-29 19:49 | Diagnostic Imaging Report ---
EXAMINATION: CT angiogram of the chest with contrast. INDICATION: Shortness of breath and left-sided chest pain. Evaluate for pulmonary embolism. TECHNIQUE: After intravenous contrast administration, thin section axial CT angiography of the chest was performed. Multiple reconstructions were provided including MIP reformats. All CT scans use one or more of the following dose optimizing techniques: automated exposure control, MA and/or KvP adjustment based on patient size and exam type or iterative reconstruction. FINDINGS: There is no CT radiographic finding of a filling defect within the pulmonary arteries or evidence of right ventricular strain. Thoracic aorta demonstrates no dissection or aneurysm. Heart size is normal. There is no filling defect in the left atrium. The lungs demonstrate no finding of pneumonia or edema. There is no pleural effusion. There is no pneumothorax. There is no suspicious nodule or mass. There is no finding of thoracic adenopathy. The visualized portion of the upper abdomen demonstrates no acute process. There is no acute or suspicious osseous abnormality. IMPRESSION: 1. No CT angiographic evidence of pulmonary embolism or right ventricular strain. 2. No acute aortic syndrome. 3. The lungs are clear. Dictated by: Dictated on workstation # [id number]
[2023-07-29] MEDS ORDERED: KETO10TA PO (19:58)
[2023-07-29] MEDS ORDERED: PANT40TA2 PO (19:58)
[2023-07-29] MEDS ORDERED: KETOROLAC INJ 30 MG/ML VIAL IVP ONE (20:00)
[2023-07-29 20:11] VITALS: BP 141/68
== END 2023-07-29 20:11 | disposition home or self-care (01) ==
LOC: EDUNIT# 18:05 → ER 18:08
DX: R07.89 Other chest pain (principal); Z79.82 Long term (current) use of aspirin; Z28.310 Unvaccinated for COVID-19; Z20.822 Contact with and (suspected) exposure to COVID-19
CPT/HCPCS: 36415; 71045; 71275; 80053; 82150; 82550; 82553; 83690; 83735; 83874; 83880; 84484; 84703; 85025; 85379; 85610; 85730; 87636; 93005; 93041